=== PATIENT | male | born 1970 | race Caucasian/White ===

== ENCOUNTER 2019-01-23 16:51 | Emergency (ER) | payer BC ==
[~2019-01-23] VITALS: Ht 190.5 cm; Wt 168.0 kg
--- NOTE | 2019-01-23 17:31 | NUR ---
SMALL AMOUNT OF URINE COLLECTED AND WALKED TO LAB, LABS DRAWN, AWAITING RESULTS.
--- NOTE | 2019-01-23 17:38 | NUR ---
PT PRESENTS TO ED TODAY FOR BACK PAIN X7 DAYS AND ABD PAIN, CHILLS, NAUSEA, AND DIARRHEA X 4 DAYS. SENT FROM [facility] TODAY. LABS DRAWN AT [facility], [facility] CANCELED LABS. AWAITING UA RESULTS. FAMILY AT BEDSIDE, PATIENT SITTING IN ADITYA MANDUJANO NOTED. NO ADDITIONAL NEEDS AT THIS TIME. HX DIABETES, HYPOTHYROIDISM, AND HTN.
[2019-01-23] MEDS ORDERED: METF500T17 PO (17:52)
[2019-01-23] MEDS ORDERED: PIOG15TA22 PO (17:53)
[2019-01-23] MEDS ORDERED: NITR0.4T28 SL (17:54)
[2019-01-23] MEDS ORDERED: METF500T27 PO (17:54)
[2019-01-23 17:55] LABS: MICROSCOPIC NOT IND
[2019-01-23] MEDS ORDERED: PIOG45TA64 PO (17:55)
[2019-01-23] MEDS ORDERED: VALS1TAB26 PO (17:56)
[2019-01-23] MEDS ORDERED: FENO160T PO (17:56)
[2019-01-23] MEDS ORDERED: GABA-827 PO (17:57)
[2019-01-23] MEDS ORDERED: LANS30CA PO (17:57)
[2019-01-23 17:58] LABS: CULTURE INDICATED? NO
[2019-01-23] MEDS ORDERED: LEVO75TA PO (17:58)
--- NOTE | 2019-01-23 18:54 | NUR ---
NEW ORDERS FOR CT, IV STARTED. AWAITING CT. VS UPDATED IN CHART, PATIENT/FAMILY UPDATED ON POC. NAD NOTED. PATIENT SITTING COMFORTABLY IN GURNEY.
--- NOTE | 2019-01-23 18:57 | NUR ---
PATIENT TO CT VIA [id number].
[2019-01-23] MEDS ORDERED: OMNIPAQUE 350 MG/ML, 100ML BOTTLE ONE (19:00)
[2019-01-23 20:07] VITALS: BP 97/64
--- NOTE | 2019-01-23 20:07 | NUR ---
Patient/Caregiver given discharge instructions and they have confirmed that they understand the instructions. Patient ambulatory with steady gait.
== END 2019-01-23 20:09 | disposition home or self-care (01) ==
LOC: ED 18:13
DX: K85.00 Idiopathic acute pancreatitis without necrosis or infection (principal); R19.7 Diarrhea, unspecified; I10 Essential (primary) hypertension; E11.9 Type 2 diabetes mellitus without complications
CPT/HCPCS: 74177; 81003; 99284; Q9967